=== PATIENT | male | born 1935 | race Caucasian/White ===

== ENCOUNTER → 2018-08-12 | Outpatient (CLI) | payer OTHER ==
[~2018-08-12] MED LIST: ACET325 PO; ASCO500 PO; ASPI325; ASPI81CH; ASPI81CH PO; BUDE6HFA INH; CARV25; CARV25 PO; CEFTR1PB IV; CEPH500 PO; CHOL10002 PO; CIPR500 PO; CLOP75; COLC.6 PO; COREG; Clindamycin HC150 MG PO; DIGO.25; EZET10-20; FURO20 PO; FURO40; FURO80; GLIP10; Humalog100 UNIT/1; Humalog100 UNIT/3 SC; INSULANI; INSULANPEN; INSULANPEN SC; LANOXIN; METALOZONE; METF500 PO; POTA10T; POTCHL20ER PO; PRED20 PO; RXHYDACE PO; SACC250C PO; SERT25 PO; SIMV10 PO; SPIR25 PO; Simvastatin20 MG PO; VYTORIN; WARF4; WARF6
== END | disposition home or self-care (01) ==
LOC: LAB SHORT 13:48 → PLD 13:48
DX: D48.5 Neoplasm of uncertain behavior of skin (principal)
CPT/HCPCS: 88305; 88313

== ENCOUNTER → 2018-12-25 | Outpatient (CLI) | payer OTHER ==
[2018-12-26 15:33] LABS: Stool Occult Bld Immuno 1 Negative (NEGATIVE); Stool Occult Bld Immuno 2 Negative (NEGATIVE)
== END | disposition home or self-care (01) ==
LOC: LAB SHORT 21:30 → LAB 21:30 → LAB FUT 12-25 17:00
PROVIDERS: Internal Medicine
DX: N18.4 Chronic kidney disease, stage 4 (severe) (principal); D63.1 Anemia in chronic kidney disease; D69.6 Thrombocytopenia, unspecified
CPT/HCPCS: 82274

== ENCOUNTER → 2020-03-21 | Outpatient (CLI) | payer OTHER ==
[2020-03-21 11:19] LABS: Appearance, Urine Clear (Clear); Bilirubin, Urine Neg (Neg); Blood, Urine 2+ (Neg); Color, Urine Yellow (P-Yellow); Glucose Qualitative, Urine Neg (Neg); Ketones, Urine Neg (Neg); Leukocyte Esterase, Urine 1+ (Neg); Nitrite, Urine Neg (Neg); Protein, Urine 2+ (Neg); Urobilinogen, Urine NORM (Normal)
[2020-03-21 11:30] LABS: Bacteria Few /hpf; Squamous Epithelial Cells Rare /hpf (Few)
== END | disposition home or self-care (01) ==
LOC: LAB 10:21 → LAB SHORT 10:21
PROVIDERS: Internal Medicine
DX: R35.0 Frequency of micturition (principal)
CPT/HCPCS: 81001; 87086

== ENCOUNTER → 2021-04-05 | Outpatient (CLI) | payer OTHER ==
[2021-04-05 11:31] LABS: Appearance, Urine Clear (Clear); Bilirubin, Urine Neg (Neg); Blood, Urine 4+ (Neg); Color, Urine Yellow (P-Yellow); Glucose Qualitative, Urine Neg (Neg); Ketones, Urine Neg (Neg); Leukocyte Esterase, Urine 1+ (Neg); Nitrite, Urine Neg (Neg); Protein, Urine 2+ (Neg); Specific Gravity, Urine 1.015 (1.003-1.022); Urobilinogen, Urine NORM (Normal)
[2021-04-05 11:51] LABS: Bacteria Few /hpf; Squamous Epithelial Cells Few /hpf (Few)
== END | disposition home or self-care (01) ==
LOC: LAB SHORT 10:07
PROVIDERS: Internal Medicine
DX: N18.32 Chronic kidney disease, stage 3b (principal)
CPT/HCPCS: 81001; 87077; 87086; 87186

== ENCOUNTER 2021-08-29 07:18 | Observation (INO) | payer OTHER ==
[~2021-08-29] VITALS: Ht 177.8 cm; Wt 94.1 kg
[~2021-08-29 07:18] MED LIST changes: +LOSA25 PO; +ROSU5 PO
[2021-08-30 04:41] LABS: Hematocrit 34.8 % (37.0-53.0); Hemoglobin 10.9 g/dL (13.5-17.5); Mean Corpuscular HGB 29.2 pg (26.0-34.0); Mean Corpuscular HGB Conc 31.3 g/dL (31.5-36.5); Mean Corpuscular Volume 93 fL (80-100); Mean Platelet Volume 11.8 fL (9.1-12.4); Platelet Count 62 K/mm3 (150-400); RDW Coefficient Variation 15.3 % (11.7-14.2); RDW Standard Deviation 52.1 fL (35.1-46.3); Red Blood Cell Count 3.73 M/mm3 (4.30-5.90); White Blood Cell Count 6.75 K/mm3 (4.00-11.30)
[2021-08-30 04:54] LABS: Bun/Creatinine Ratio 47.9 (12.0-20.0); Calcium, Blood 9.4 mg/dL (8.5-10.1); Creatinine, Blood 1.94 mg/dL (0.60-1.20)
== END 2021-08-30 11:52 | disposition home or self-care (01) ==
LOC: MHTC 07:18 → PCU 10:34
PROVIDERS: Internal Medicine Cardiovascular Disease; ADMIT Internal Medicine Cardiovascular Disease
DX: I48.20 Chronic atrial fibrillation, unspecified (principal); I49.3 Ventricular premature depolarization; I25.10 Atherosclerotic heart disease of native coronary artery without angina pectoris; Z95.2 Presence of prosthetic heart valve; I50.9 Heart failure, unspecified; N18.4 Chronic kidney disease, stage 4 (severe); E11.22 Type 2 diabetes mellitus with diabetic chronic kidney disease; E78.5 Hyperlipidemia, unspecified; D69.6 Thrombocytopenia, unspecified; Z88.8 Allergy status to other drugs, medicaments and biological substances; Z88.4 Allergy status to anesthetic agent; Z88.5 Allergy status to narcotic agent; Z79.899 Other long term (current) drug therapy
CPT/HCPCS: 33207; 36415; 71046; 80048; 82947; 85027; 99152; 99153; A9270; C1769; C1786; C1898; J0690; J1644; J1815; J2250; J2405; J3010; J7030; J7040; Q9967

== ENCOUNTER → 2021-11-07 | Outpatient (CLI) | payer OTHER ==
[2021-11-08 08:51] LABS: Source, Urine Voided
[2021-11-08 09:41] LABS: Bilirubin, Urine Neg (Neg); Blood, Urine 1+ (Neg); Glucose Qualitative, Urine Neg (Neg); Ketones, Urine Neg (Neg); Leukocyte Esterase, Urine 2+ (Neg); Nitrite, Urine Neg (Neg); Protein, Urine 2+ (Neg); Specific Gravity, Urine 1.015 (1.003-1.022); Urobilinogen, Urine NORM (Normal)
[2021-11-08 09:44] LABS: Appearance, Urine Clear (Clear); Color, Urine Yellow (P-Yellow)
[2021-11-08 10:17] LABS: Bacteria Few /hpf; Red Blood Cells, Urine 0-2 /hpf (0-2); Squamous Epithelial Cells Rare /hpf (Few)
[2021-11-08 10:18] LABS: Calcium Oxalate Crystals Rare /hpf
[2021-11-08 11:13] LABS: Creatinine, Urine Random 78.9 mg/dL (27.00-270.00); Protein, Urine Random 31.2 mg/dL (0.0-11.9); Protein/Creat Ratio, Ur Random 0.4
== END | disposition home or self-care (01) ==
LOC: LAB SHORT 19:30
PROVIDERS: Internal Medicine Nephrology
DX: N18.32 Chronic kidney disease, stage 3b (principal)
CPT/HCPCS: 81001; 82570; 84156

== ENCOUNTER 2022-07-05 02:16 | Inpatient (IN) | payer OTHER ==
[~2022-07-05] VITALS: Ht 180.3 cm; Wt 97.3 kg
[2022-07-05] MEDS ORDERED: CALC.25 PO (02:40)
[2022-07-05] MEDS ORDERED: ALLO100 PO (02:41)
[2022-07-05] MEDS ORDERED: LEVSOD25 PO (02:41)
[2022-07-05] MEDS ORDERED: Amiodarone HCl200 MG PO (02:41)
[2022-07-05] MEDS ORDERED: FOLI1 PO (02:42)
[2022-07-05 03:43] LABS: BASOPHILS ABSOLUTE AUTO 0.01 K/mm3 (0.00-0.23); BASOPHILS PERCENT AUTO 0 % (0-2); EOSINOPHILS ABSOLUTE AUTO 0.24 K/mm3 (0.00-0.68); EOSINOPHILS PERCENT AUTO 3 % (0-6); Hematocrit 31.3 % (37.0-53.0); Hemoglobin 10.2 g/dL (13.5-17.5); IMMATURE GRAN ABSOLUTE AUTO 0.04 K/mm3 (0.00-0.10); IMMATURE GRAN PERCENT AUTO 1 % (0-1); LYMPHOCYTES ABSOLUTE AUTO 1.34 K/mm3 (0.84-5.20); LYMPHOCYTES PERCENT AUTO 18 % (21-46); MONOCYTES ABSOLUTE AUTO 0.88 K/mm3 (0.16-1.47); MONOCYTES PERCENT AUTO 12 % (4-13); Mean Corpuscular HGB 30.6 pg (26.0-34.0); Mean Corpuscular HGB Conc 32.6 g/dL (31.5-36.5); Mean Corpuscular Volume 94 fL (80-100); Mean Platelet Volume 11.7 fL (9.1-12.4); NEUTROPHILS PERCENT AUTO 66 % (41-73); Platelet Count 57 K/mm3 (150-400); RDW Coefficient Variation 15.3 % (11.7-14.2); RDW Standard Deviation 53.4 fL (35.1-46.3); Red Blood Cell Count 3.33 M/mm3 (4.30-5.90); White Blood Cell Count 7.31 K/mm3 (4.00-11.30)
[2022-07-05 04:00] LABS: Influenza A, PCR NEGATIVE (NEGATIVE); Influenza B, PCR NEGATIVE (NEGATIVE); Resp Syncytial Virus, PCR NEGATIVE (NEGATIVE); SARS-Cov-2 (COVID-19) PCR, MMC NEGATIVE (NEGATIVE)
[2022-07-05 04:10] LABS: Albumin, Blood 3.4 g/dL (3.4-5.0); Albumin/Globulin Ratio 0.8 (0.8-1.8); Bilirubin, Total 0.5 mg/dL (0.1-1.0); Bun/Creatinine Ratio 30.6 (12.0-20.0); Calcium, Blood 10.4 mg/dL (8.5-10.1); Creatinine, Blood 3.37 mg/dL (0.60-1.20); Globulin, Blood 4.5 g/dL (2.2-4.0); Potassium, Blood 3.8 mmol/L (3.5-5.5); Total Protein, Blood 7.9 g/dL (6.4-8.2)
[2022-07-05 06:52] LABS: Source, Urine Straight Cath
[2022-07-05 07:09] LABS: Bilirubin, Urine Neg (Neg); Blood, Urine 4+ (Neg); Color, Urine Yellow (P-Yellow); Glucose Qualitative, Urine Neg (Neg); Ketones, Urine Neg (Neg); Leukocyte Esterase, Urine 2+ (Neg); Nitrite, Urine Neg (Neg); Protein, Urine 2+ (Neg); Specific Gravity, Urine 1.015 (1.003-1.022); Urobilinogen, Urine NORM (Normal)
[2022-07-05 07:48] LABS: Appearance, Urine Hazy (Clear)
[2022-07-05 07:49] LABS: Bacteria Rare /hpf; Squamous Epithelial Cells Rare /hpf (Few); Yeast/Fungi Urine Few /hpf
--- NOTE | 2022-07-05 10:54 | NUR ---
ADMIT PATIENT ADMITTED FROM ER AT 0930. PATIENT SETTLED INTO ROOM. PATIENT ORIENTED TO CALL LIGHT AND TV CONTROL. PATIENT A&O X4, FAMILY REPORTS OCCASSIONALLY FORGETFUL WHEN FIRST WAKING UP. AND DAUGHTER AT BEDSIDE DURING ADMIT. PATIENT LIVES WITH BOTH OF THEM. BED ALARM ON FOR SAFETY. PER FAMILY, PATIENT IS W/C BOUND AT BASELINE, USUALLY ABLE TO STAND PIVOT TRANSFER WITH LITTLE ASSISTANCE. WOUND IN PANNUS, PICTURES IN CHART. 2ND RN FOR SKIN CHECK, ALEXANDER FRANKLIN. PATIENT ON ROOM AIR, SATURATING WELL. PATIENT DOES HAVE WET, PRODUCTIVE COUGH. PATIENT IS [place]. LUNG SOUNDS CLEAR. TELE PLACED, VENT PACED AT 66, OCCASSIONALLY ALSO IN AFIB. PT/OT ORDERED. PATIENT HAD GLF LAST NIGHT AT HOME.
[2022-07-06 05:58] LABS: BASOPHILS ABSOLUTE AUTO 0.02 K/mm3 (0.00-0.23); BASOPHILS PERCENT AUTO 0 % (0-2); EOSINOPHILS ABSOLUTE AUTO 0.16 K/mm3 (0.00-0.68); EOSINOPHILS PERCENT AUTO 3 % (0-6); Hematocrit 27.2 % (37.0-53.0); IMMATURE GRAN ABSOLUTE AUTO 0.04 K/mm3 (0.00-0.10); IMMATURE GRAN PERCENT AUTO 1 % (0-1); LYMPHOCYTES ABSOLUTE AUTO 1.44 K/mm3 (0.84-5.20); LYMPHOCYTES PERCENT AUTO 22 % (21-46); MONOCYTES ABSOLUTE AUTO 0.71 K/mm3 (0.16-1.47); MONOCYTES PERCENT AUTO 11 % (4-13); Mean Corpuscular HGB Conc 33.1 g/dL (31.5-36.5); Mean Corpuscular Volume 94 fL (80-100); Mean Platelet Volume 10.6 fL (9.1-12.4); NEUTROPHILS ABSOLUTE AUTO 4.11 K/mm3 (1.96-9.15); NEUTROPHILS PERCENT AUTO 63 % (41-73); RDW Coefficient Variation 15.4 % (11.7-14.2); RDW Standard Deviation 53.3 fL (35.1-46.3); White Blood Cell Count 6.48 K/mm3 (4.00-11.30)
[2022-07-06 06:19] LABS: Platelet Count 49 K/mm3 (150-400)
[2022-07-06 07:01] LABS: Albumin, Blood 2.7 g/dL (3.4-5.0); Albumin/Globulin Ratio 0.6 (0.8-1.8); Bilirubin, Total 0.5 mg/dL (0.1-1.0); Bun/Creatinine Ratio 32.6 (12.0-20.0); Calcium, Blood 9.2 mg/dL (8.5-10.1); Creatinine, Blood 3.22 mg/dL (0.60-1.20); Globulin, Blood 4.4 g/dL (2.2-4.0); Percent Saturation 9.5 % (20.0-50.0); Phosphorus, Blood 4.4 mg/dL (2.5-4.9); Potassium, Blood 3.2 mmol/L (3.5-5.5); Total Protein, Blood 7.1 g/dL (6.4-8.2)
--- NOTE | 2022-07-06 07:33 | NUR ---
POWER REGULATOR SUMMARY: A&Ox4. PLEASANT AND COOPERATIVE WITH CARE. CALLS APPROPRIATELY AND IS ABLE TO COMMUNICATE NEEDS EFFECTIVELY. WHEELCHAIR-BOUND AT BASELINE. PILLS WHOLE IN WATER. BLEs EDEMATOUS. BUEs DRY WITH MULTIPLE BRUISING SCATTERED T/O R/T FALL HE RECENTLY HAD AT HOME. NO ACUTE EVENTS T/O THE NIGHT. LABS DRAWN THIS AM; CRITICAL PLATELET VALUE OF 49 RECEIVED FROM ANITRA IN HEMATOLOGY. WINDOWS DEPLOYMENT TECHNICIAN NOTIFIED. OF NOTE, PT DOES HAVE THROMBOCYTOPENIA AND HAS LOW PLATELETS AT BASELINE, NOTED IN PROVIDER S NOTES. REPORT TO ONCOMING RN.
--- NOTE | 2022-07-06 16:01 | NUR ---
SPOKE TO DR CURRY RE PT NOT WANTING HEPARIN R/T LOW PLATELETTS. HE OKAYED WITH USING SCD'S FOR DVT PROPHYLACTICS. THEY ARE ALREADY ON ORDER. WILL DISCUSS WITH MARCELA CERVANTES.
--- NOTE | 2022-07-06 18:26 | NUR ---
PT HAD DISCUSSION WITH DR RICHARDS ABOUT DIALYSIS. I DID DISCUSS THIS SOME FURTHER. PT AND FAMILY TO TALK MORE. PT STATES FEELS A LITTLE BETTER TODAY. NO C/O PAIN TODAY. FAMILY AT BEDSIDE MOST OF DAY. PT AND FAMILY DID DISCUSS HOLDING HEPARIN R/T LOW PLATELETT COUNT. DR SYLVESTERAYED PLACING THE SCD'S. NO OTHER NEW CONCERNS NOTED. BED IN LOW POSITION, CALL LITE IN REACH, CALLS APPROP
--- NOTE | 2022-07-07 05:32 | NUR ---
PT SLEPT WELL. Q 2-3HR REPOSITIONING. CONTINUES TO HAVE WET PRODUCTIVE COUGH
[2022-07-07 05:44] LABS: BASOPHILS ABSOLUTE AUTO 0.01 K/mm3 (0.00-0.23); BASOPHILS PERCENT AUTO 0 % (0-2); EOSINOPHILS ABSOLUTE AUTO 0.23 K/mm3 (0.00-0.68); EOSINOPHILS PERCENT AUTO 3 % (0-6); Hematocrit 26.4 % (37.0-53.0); Hemoglobin 8.7 g/dL (13.5-17.5); IMMATURE GRAN ABSOLUTE AUTO 0.04 K/mm3 (0.00-0.10); IMMATURE GRAN PERCENT AUTO 1 % (0-1); LYMPHOCYTES ABSOLUTE AUTO 1.44 K/mm3 (0.84-5.20); LYMPHOCYTES PERCENT AUTO 20 % (21-46); MONOCYTES ABSOLUTE AUTO 0.79 K/mm3 (0.16-1.47); MONOCYTES PERCENT AUTO 11 % (4-13); Mean Corpuscular HGB 30.6 pg (26.0-34.0); Mean Corpuscular Volume 93 fL (80-100); Mean Platelet Volume 12.8 fL (9.1-12.4); NEUTROPHILS ABSOLUTE AUTO 4.62 K/mm3 (1.96-9.15); NEUTROPHILS PERCENT AUTO 65 % (41-73); RDW Coefficient Variation 14.9 % (11.7-14.2); RDW Standard Deviation 51.3 fL (35.1-46.3); Red Blood Cell Count 2.84 M/mm3 (4.30-5.90); White Blood Cell Count 7.13 K/mm3 (4.00-11.30)
[2022-07-07 05:49] LABS: Platelet Count 49 K/mm3 (150-400)
--- NOTE | 2022-07-07 05:50 | NUR ---
CALL FROM [place] IN LAB, CRITICAL VALUE OF PLATLETS AT 49
[2022-07-07 06:08] LABS: Bun/Creatinine Ratio 34.9 (12.0-20.0); Calcium, Blood 8.7 mg/dL (8.5-10.1); Creatinine, Blood 3.01 mg/dL (0.60-1.20); Potassium, Blood 3.2 mmol/L (3.5-5.5)
--- NOTE | 2022-07-07 18:23 | NUR ---
FAMILY IN ROOM WITH PT MOST OF DAY. THEY ARE DISCUSSING IF GO DIALYSIS ROUTE. I CALLED [facility] IN TO TALK TO FAMILY TODAY. DR RICHARDS TO COME SEE TOMORROW IN PERSON. PT DIDNT EAT MUCH LUNCH, BUT STATES THINKS MIGHT DO BETTER FOR DINNER. ENCOURAGING HIM BRINKING MORE. NO NEW CONCERNS NOTED TODAY. DID GET HEPARIN D/C TODAY AND PT SI USING SCD'S. BED IN LOW POSITION, CALL LITE IN REACH, CALLS APPROP
--- NOTE | 2022-07-07 20:00 | NUR ---
Met with family to review diagnostic and what dialysis care would look like versus hospice. Pt was able to answer a few questions but drifted off to sleep. Pt struggling to hosp head in postion so got neck pillow. Spoke with and daughter about care. reviewed of nephrolgy note. They had a family memeber on dialysis so understand the commitment and difficult logistics. They ore more inclined to not have treatment. is bargianing some she hopes doctor can recover his kidneys and he can go to rehab for some thearpy and return home. She states he is a and want to look at placement if on hospice. Theyare struggling a bit with acceptance. The did ask many questions. Will discuss more with them and review polst. will give them loving choices book. pt kps score is 30%.
[2022-07-08 06:24] LABS: Albumin, Blood 2.5 g/dL (3.4-5.0); Anion Gap 8 mmol/L (6-16); Blood Urea Nitrogen 104 mg/dL (8-24); Bun/Creatinine Ratio 35.9 (12.0-20.0); CO2, Blood 25 mmol/L (21-32); Chloride, Blood 106 mmol/L (98-108); Glomerular Filtration Rate 21 (60-); Glucose, Blood 151 mg/dL (70-99); Phosphorus, Blood 4.4 mg/dL (2.5-4.9); Potassium, Blood 3.1 mmol/L (3.5-5.5); Sodium, Blood 139 mmol/L (136-145)
--- NOTE | 2022-07-08 07:23 | NUR ---
TRANSFER DRIVER SUMMARY: A&Ox4. PLEASANT AND COOPERATIVE WITH CARE. CALLS APPROPRIATELY AND IS ABLE TO COMMUNICATE NEEDS EFFECTIVELY. INCONTINENT OF URINE AND POOR MOBILITY; Q2H TURNS FOR SKIN INTEGRITY. SMALL AREA ON BUTTOCK COVERED WITH MEPILEX. CONTINUES TO HAVE SIGNIFICANT BRUISING AND DRY SKIN ALL EXTREMITIES. BLEs 2+ EDEMA. LABS THIS AM. WILL REPORT TO ONCOMING RN.
--- NOTE | 2022-07-08 16:50 | NUR ---
SHIFT SUMMARY PT A&OX4, COOPERATIVE WITH CARE. HEARING DEFICIT. LEFT SIDED LIST. OVERALL WEAKNESS. SKIN VERY FRAGILE AND ECCHYMOTIC. IV BLOWN. DC ORDERS RECEIVED FROM DR. PUENTES. TELE REMOVED. PT HAS POLYURIA AND INCONTINENCE DUE TO DIURESING. BLANCHABLE REDNESS TO BILATERAL HEELS. NONBLANCHABLE REDNESS AND AN OPEN SORE ON COCCYX. LUNG SOUNDS CONGESTED, OCCASIONAL NON-PRODUCTIVE COUGH. NO ACUTE EVENTS DURING THIS SHIFT. REPORTS PAIN TO LOWER BACK AND BACKSIDE, BUT REFUSES ANY TYPE OF PAIN MEDICATION. PT REPOSITIONED T/O SHIFT. PT CURRENTLY RESTING COMFORTABLY WITH CALL LIGHT IN REACH. PALLIATIVE CARE CONSULTED. PT AND FAMILY DECIDING BETWEEN DIALYSIS OR HOSPICE.
--- NOTE | 2022-07-09 05:38 | NUR ---
PT REFUSING REPOSITIONS AT TIMES, PREFERS ON BACK AND TO LEFT SIDE, REMINDED PT OF RISK FOR SKIN BREAKDOWN. Q2HR CHECKS.
[2022-07-09 05:46] LABS: BASOPHILS ABSOLUTE AUTO 0.01 K/mm3 (0.00-0.23); BASOPHILS PERCENT AUTO 0 % (0-2); EOSINOPHILS ABSOLUTE AUTO 0.39 K/mm3 (0.00-0.68); EOSINOPHILS PERCENT AUTO 6 % (0-6); Hemoglobin 8.6 g/dL (13.5-17.5); IMMATURE GRAN ABSOLUTE AUTO 0.04 K/mm3 (0.00-0.10); IMMATURE GRAN PERCENT AUTO 1 % (0-1); LYMPHOCYTES PERCENT AUTO 22 % (21-46); MONOCYTES ABSOLUTE AUTO 0.67 K/mm3 (0.16-1.47); MONOCYTES PERCENT AUTO 10 % (4-13); Mean Corpuscular HGB 30.2 pg (26.0-34.0); Mean Corpuscular HGB Conc 33.1 g/dL (31.5-36.5); Mean Corpuscular Volume 91 fL (80-100); Mean Platelet Volume 12.3 fL (9.1-12.4); NEUTROPHILS ABSOLUTE AUTO 3.99 K/mm3 (1.96-9.15); NEUTROPHILS PERCENT AUTO 61 % (41-73); Platelet Count 62 K/mm3 (150-400); RDW Coefficient Variation 14.9 % (11.7-14.2); RDW Standard Deviation 50.4 fL (35.1-46.3); Red Blood Cell Count 2.85 M/mm3 (4.30-5.90)
[2022-07-09 07:12] LABS: Albumin, Blood 2.2 g/dL (3.4-5.0); Anion Gap 4 mmol/L (6-16); Blood Urea Nitrogen 104 mg/dL (8-24); Bun/Creatinine Ratio 36.6 (12.0-20.0); CO2, Blood 27 mmol/L (21-32); Calcium, Blood 8.6 mg/dL (8.5-10.1); Chloride, Blood 108 mmol/L (98-108); Creatinine, Blood 2.84 mg/dL (0.60-1.20); Glomerular Filtration Rate 21 (60-); Glucose, Blood 145 mg/dL (70-99); Phosphorus, Blood 3.9 mg/dL (2.5-4.9); Potassium, Blood 3.4 mmol/L (3.5-5.5); Sodium, Blood 139 mmol/L (136-145)
--- NOTE | 2022-07-09 18:43 | NUR ---
SHIFT SUMMARY A&OX4, HARD OF HEARING. PT SLEPT THROUGH MOST OF THE DAY. FAMILY WAS PRESENT T/O SHIFT. NO ACUTE EVENTS DURING THIS SHIFT. LUNGS SOUND CONGESTED. NONPRODUCTIVE COUGH T/O SHIFT. LBM DURING SHIFT. PALLIATIVE CARE CONSULTED. FAMILY IS CURRENTLY WITH PATIENT, HE IS SLEEPING. CALL LIGHT WITHIN REACH.
--- NOTE | 2022-07-10 04:21 | NUR ---
SHIFT SUMMARY ADMITTED FOR RENAL FAILURE. FULL CODE. PO ANTIB RX ARE SCHEDULED. WE ARE DIURESING HIM. PLAN IS FOR PLACEMENT. ACHS CBG'S. 2 G LOW NA+ DIET. INCONTINENT. [place]. ON RA. RENAL CONSULT IS DR. RICHARDS. ON BEDREST. PACEMAKER IN PLACE.
[2022-07-10 05:59] LABS: Albumin, Blood 2.4 g/dL (3.4-5.0); Anion Gap 5 mmol/L (6-16); Blood Urea Nitrogen 100 mg/dL (8-24); Bun/Creatinine Ratio 31.9 (12.0-20.0); CO2, Blood 25 mmol/L (21-32); Calcium, Blood 9.2 mg/dL (8.5-10.1); Chloride, Blood 107 mmol/L (98-108); Creatinine, Blood 3.13 mg/dL (0.60-1.20); Glomerular Filtration Rate 19 (60-); Glucose, Blood 170 mg/dL (70-99); Phosphorus, Blood 3.9 mg/dL (2.5-4.9); Potassium, Blood 4.2 mmol/L (3.5-5.5); Sodium, Blood 137 mmol/L (136-145)
--- NOTE | 2022-07-10 17:51 | NUR ---
SHIFT SUMMARY PT AWAKE DURING SHIFT REPORT, RESTING QUIETLY WATCHING TV. PT IS POINT LAY [place], BUT A&O. PLEASANT AND CO-OP WITH CARE. ADMITTED FOR RF/UTI. DR RICHARDS IN TO SEE PT EARLY THIS AM TO DISCUSS PLAN OF CARE. DR PUENTES LATER IN TO SEE PT WELL. PT CONTINUES TO WAIT PLACEMENT; NANOELECTRONICS ENGINEER WORKING ON CASE. P/T IN TO SEE PT; ATTEMPTING TO GET PT TO EOB TO DANGLE. PT IS WEAK AND DECONDITIONED. PT REPOSITIONED IN BED TO GET OFF BUTTOCKS/TAILBONE. PT LATER TX'D TO CHAIR, PER REQUEST, VIA LIFT AFTER BREAKFAST. PT REMAINED IN CHAIR MOST OF THE DAY. FAMILY IN RM TO VISIT EARLIER, REMAINING AT THIS TIME. CHAIR ALARM ON FOR SAFETY. CALL LT IN REACH. DENIED FURTHER NEEDS AT THIS TIME.
--- NOTE | 2022-07-11 05:08 | NUR ---
PATIENT ALERT AND ORIENTED, ROOM AIR, NO IV, NO TELE, INCONTINENT, RENAL DIET, WAITING ON SNF PLACEMENT
[2022-07-11 05:59] LABS: Albumin, Blood 2.5 g/dL (3.4-5.0); Anion Gap 6 mmol/L (6-16); Blood Urea Nitrogen 101 mg/dL (8-24); Bun/Creatinine Ratio 31.6 (12.0-20.0); CO2, Blood 26 mmol/L (21-32); Calcium, Blood 8.9 mg/dL (8.5-10.1); Chloride, Blood 105 mmol/L (98-108); Glomerular Filtration Rate 18 (60-); Glucose, Blood 145 mg/dL (70-99); Phosphorus, Blood 4.1 mg/dL (2.5-4.9); Sodium, Blood 137 mmol/L (136-145)
--- NOTE | 2022-07-11 08:23 | NUR ---
Pt laying in bed with feet over edge, sitting him up to eat breakfast, a/ox3, [place], follows commands well, family in room, lungs are clear but dim t/o, resp even and unlabored, has a harsh nonproductive cough, hrr, trace edema noted to lle, cap refill <3sec, vs stable, afebrile, btx4, abd flat soft nontender, incont briefs in place, skin is very frail with ecchymotic areas to arms, maew, weak, aidan, call light in reach.
--- NOTE | 2022-07-11 12:35 | NUR ---
CASE CONF WITH CM ABOUT DC PLAN. PT AND FAMILY HAVE DECIDED TO DECLINE DIALYSIS, PLAN TO HAVE DISCUSSION WITH FAMILY WHEN ALL THE DAUGHTERS ARRIVE AROUND 1330 TODAY ABOUT GOALS OF CARE AND HOSPICE.
--- NOTE | 2022-07-11 13:46 | NUR ---
PT DAUGHTER, JESSICA NICOLASNT ARRIVED YET, STILL WAITING TO HAVE MEETING.
--- NOTE | 2022-07-11 15:00 | NUR ---
CASE CONF WITH CM ABOUT POSS DC PLAN HOME WITH HH OR HOSPICE. PT SNF REQUEST WAS DENIED R/T PT CHANGED THEIR RECOMENDATION FOR SNF TO HOME WITH HH. THIS RN AND CM MET WITH PT SPOUSE, ARAM AND 2 DTRS. PROVIDED EDUCATION AND INFORMATION ON HH AND HOSPICE. EXPLAINED WHAT EACH PROGRAM OFFERS AND THEIR FOCUS. EDUCATED ON WHAT THE ROLES OF HH/HOSPICE PROGRAMS, TO TEACH AND SUPPORT FAMILY TO PROVIDE TOTAL CARE AT HOME. FAMILY WITH CONCERNS ABOUT LIFTING AND CARING FOR PT AT HOME, ADVISED EACH AGENCY WILL MAKE 2-3 VISITS A WEEK, BUT IT IS UP TO THE FAMILY TO PROVIDE THE DAILY CARE. QUESTIONS ABOUT PT GOING TO SNF FOR PT IN HOPE PT WILL GET STRONGER TO COME HOME AND GET UP/AMB ON HIS OWN. AGAIN ADVISED PT DOES NOT MEET CRITERIA FOR SNF REHAB, THEY VU. FAM IS LEANING TOWARDS HH AT HOME FOR PT SERICES TO FOCUS ON PT GETTING STRONGER AND "GET BETTER." HOWEVER, STILL HAVE QUESTIONS ABOUT HOSPICE PT IS A [facility] AND IF QUALIFIES FOR HOSPICE CAN BE CARED FOR AT A SNF UNTIL END OF LIFE. FAMILY WOULD LIKE TIME TO DICSUSS AND WILL FOLLOW UP LATER TODAY TO HELP ARRANGE APPROP DC PLAN. ADDITIONAL QUESTIONS ANSWERED ABOUT HOSPICE, THEY FOCUS ON QUALITY OF CARE AND COMFORT. WILL NOT HAVE PT FOR INCREASED STRENGTH OR REHAB, BUT FOR ROM FOR COMFORT. ALSO EDUCATED THAT ONCE A DECISION IS MADE TO GO ON HOSPICE, PT/FAM CAN DECIDE TO DC HOSPICE LATER IF PT IMPROVES OR THEY DECIDE TO GO A DIFFERENT DIRECTION. NO ADDITIONAL QUESTIONS AND WILL FOLLOW UP LATER FOR THEIR DECISION.
--- NOTE | 2022-07-11 17:27 | NUR ---
F/UP MEETING WITH FAMILY. ARAM REPORTS THEY WANT TO PROCEED WITH DC HOME WITH HH SERVICES. THEY ARE REQUESTING A BED AND HAVE SIGNED CHOICE LETTER WITH CM. UPDATED CM ON FAMILY'S DECISION. PALLIATIVE CARE WILL CONTINUE TO FOLLOW.
--- NOTE | 2022-07-11 18:39 | NUR ---
pt has had an uneventful day, no acute changes this shift. family at bedside all day, no needs or complaints. call light in reach.
--- NOTE | 2022-07-12 06:46 | NUR ---
PATIENT ALERT AND ORIENTED, ROOM AIR, NO IV, NO TELE, INCONTINENT, RENAL DIET, AC ACCUCHECKS, AWAITING PLACEMENT TO SNF
--- NOTE | 2022-07-12 17:51 | NUR ---
Shift Summary A/Ox3, pleasant/cooperative. Transfer status changed today from lift to 2p max/gaitbelt/Fww. When attempted to transfer patient from bsc to bed, patient buckled and did not inform staff that knees were going to buckle. RN noticed and immediately pulled bsc back underneath to prevent fall. Second attempt was better, but patient did not tolerate standing up for long enough to wipe and apply cream before requesting to be seated again. was at bedside during this time. Some pain to coccyx, dressing changed due to soiled, reposition as patient allows. Requires persistent encouragement to allow staff to reposition despite education on pressure ulcer prevention. Family also educated on the need for Q2H turns and offloading. Good appetite. Sleepy today.
[2022-07-13 05:25] LABS: BASOPHILS ABSOLUTE AUTO 0.02 K/mm3 (0.00-0.23); BASOPHILS PERCENT AUTO 0 % (0-2); EOSINOPHILS ABSOLUTE AUTO 0.44 K/mm3 (0.00-0.68); EOSINOPHILS PERCENT AUTO 6 % (0-6); Hematocrit 25.7 % (37.0-53.0); Hemoglobin 8.5 g/dL (13.5-17.5); IMMATURE GRAN PERCENT AUTO 2 % (0-1); LYMPHOCYTES ABSOLUTE AUTO 1.44 K/mm3 (0.84-5.20); LYMPHOCYTES PERCENT AUTO 21 % (21-46); MONOCYTES ABSOLUTE AUTO 0.74 K/mm3 (0.16-1.47); MONOCYTES PERCENT AUTO 11 % (4-13); Mean Corpuscular HGB 30.4 pg (26.0-34.0); Mean Corpuscular HGB Conc 33.1 g/dL (31.5-36.5); Mean Corpuscular Volume 92 fL (80-100); Mean Platelet Volume 12.2 fL (9.1-12.4); NEUTROPHILS ABSOLUTE AUTO 4.13 K/mm3 (1.96-9.15); NEUTROPHILS PERCENT AUTO 60 % (41-73); Platelet Count 110 K/mm3 (150-400); RDW Coefficient Variation 14.8 % (11.7-14.2); RDW Standard Deviation 50.1 fL (35.1-46.3); White Blood Cell Count 6.87 K/mm3 (4.00-11.30)
[2022-07-13 05:52] LABS: Alanine Aminotransfer (ALT/SGP 75 U/L (12-78); Albumin, Blood 2.6 g/dL (3.4-5.0); Albumin/Globulin Ratio 0.6 (0.8-1.8); Alk Phos 94 U/L (50-136); Anion Gap 5 mmol/L (6-16); Aspartate Aminotrans (AST/SGOT 53 U/L (12-37); Bilirubin, Total 0.4 mg/dL (0.1-1.0); Blood Urea Nitrogen 101 mg/dL (8-24); Bun/Creatinine Ratio 29.2 (12.0-20.0); CO2, Blood 26 mmol/L (21-32); Calcium, Blood 9.1 mg/dL (8.5-10.1); Chloride, Blood 103 mmol/L (98-108); Creatinine, Blood 3.46 mg/dL (0.60-1.20); Globulin, Blood 4.5 g/dL (2.2-4.0); Glomerular Filtration Rate 17 (60-); Glucose, Blood 125 mg/dL (70-99); Phosphorus, Blood 4.2 mg/dL (2.5-4.9); Potassium, Blood 3.8 mmol/L (3.5-5.5); Sodium, Blood 134 mmol/L (136-145); Total Protein, Blood 7.1 g/dL (6.4-8.2)
--- NOTE | 2022-07-13 06:34 | NUR ---
PATIENT SLEPT WELL. NO EVENTS OVERNIGHT. PATIENT POSSIBLE DISCHARGE HOME WITH HOME HEALTH
--- NOTE | 2022-07-13 15:56 | NUR ---
Shift Summary A/O, family at bedside. Considering plans to d/c home with HH tomorrow AM, edcuation given to and daughter with teach back RE assisting with urinal use and repositioning for ulcer prevention. Calling appropriately for urinal use. Remains increasingly weak. No pain issues. Good appetite. Voiding well.
[2022-07-14 06:04] LABS: Albumin, Blood 2.6 g/dL (3.4-5.0); Anion Gap 5 mmol/L (6-16); Blood Urea Nitrogen 98 mg/dL (8-24); Bun/Creatinine Ratio 27.8 (12.0-20.0); CO2, Blood 26 mmol/L (21-32); Calcium, Blood 9.2 mg/dL (8.5-10.1); Chloride, Blood 103 mmol/L (98-108); Creatinine, Blood 3.53 mg/dL (0.60-1.20); Glomerular Filtration Rate 16 (60-); Glucose, Blood 171 mg/dL (70-99); Phosphorus, Blood 4.5 mg/dL (2.5-4.9); Potassium, Blood 3.8 mmol/L (3.5-5.5); Sodium, Blood 134 mmol/L (136-145)
--- NOTE | 2022-07-14 06:11 | NUR ---
PATIENT ALERT AND ORIENTED, ROOM AIR, NO TELE, NO IV, PATIENT SAT UP ON SIDE OF BED IN THE MIDDLE OF THE NIGHT DUE TO SHOULDER AND NECK PAIN FROM LAYING IN BED, MEDICATED WITH TYLENOL, PLAN TO D/C HOME WITH HH
[2022-07-14] MEDS ORDERED: Vitamin D1000 UNI1 PO (15:48)
--- NOTE | 2022-07-14 17:37 | NUR ---
DISCHARGE NOTE: PT AND FAMILY EDUCATED ON DISCHARGE MEDICATIONS, AND FOLLOWING UP WITH PCP IN 1 WEEK. PT DRESSED BY NUTRITION CONSULTANT AND DRESSING CHANGE ON COCCYX. PT PERSONAL BELONGINGS PACKED BY FAMILY. PT HAD NO IV ACCESS. PT TRANSPORTED HOME BY [facility].
== END 2022-07-14 18:00 | disposition home health service (06) | DRG 682 ==
LOC: ER 02:16 → MEDS 02:17
PROVIDERS: Family Medicine; Internal Medicine; Internal Medicine Nephrology; Student in an Organized Health Care Education/Training Program; ADMIT Internal Medicine
DX: N17.9 Acute kidney failure, unspecified (principal); G93.41 Metabolic encephalopathy; I13.0 Hypertensive heart and chronic kidney disease with heart failure and stage 1 through stage 4 chronic kidney disease, or unspecified chronic kidney disease; N39.0 Urinary tract infection, site not specified; J90 Pleural effusion, not elsewhere classified; N18.4 Chronic kidney disease, stage 4 (severe); E87.6 Hypokalemia; I50.9 Heart failure, unspecified; E11.22 Type 2 diabetes mellitus with diabetic chronic kidney disease; D69.6 Thrombocytopenia, unspecified; Z51.5 Encounter for palliative care; I25.5 Ischemic cardiomyopathy; E66.09 Other obesity due to excess calories; I48.91 Unspecified atrial fibrillation; D63.1 Anemia in chronic kidney disease; F41.9 Anxiety disorder, unspecified; I25.10 Atherosclerotic heart disease of native coronary artery without angina pectoris; F32.A Depression, unspecified; G47.33 Obstructive sleep apnea (adult) (pediatric); M10.9 Gout, unspecified; E78.5 Hyperlipidemia, unspecified; B96.89 Other specified bacterial agents as the cause of diseases classified elsewhere; B95.4 Other streptococcus as the cause of diseases classified elsewhere; W18.30XA Fall on same level, unspecified, initial encounter; Z20.822 Contact with and (suspected) exposure to COVID-19; Z85.46 Personal history of malignant neoplasm of prostate; Z95.2 Presence of prosthetic heart valve; Z98.890 Other specified postprocedural states; Z95.5 Presence of coronary angioplasty implant and graft; Z88.8 Allergy status to other drugs, medicaments and biological substances; Z88.5 Allergy status to narcotic agent; Z79.899 Other long term (current) drug therapy; Z79.01 Long term (current) use of anticoagulants; Z79.4 Long term (current) use of insulin; Z87.442 Personal history of urinary calculi; Z87.891 Personal history of nicotine dependence; Z68.29 Body mass index [BMI] 29.0-29.9, adult
CPT/HCPCS: 0241U; 36415; 51798; 71045; 76770; 80048; 80053; 80069; 81001; 82306; 82570; 82728; 82947; 83540; 83550; 83735; 83880; 83970; 84100; 84145; 84156; 84300; 84540; 85025; 87086; 93005; 93010; 96374; 97110; 97112; 97112-CQ; 97161; 97166; 97530; 97535; 99285-25; A9270; G0378; J0696; J1815; J7030; Q5106

== ENCOUNTER → 2022-08-08 | Outpatient (CLI) | payer OTHER ==
[~2022-08-08] MED LIST changes: +ALLO100 PO; +Amiodarone HCl200 MG PO; +CALC.25 PO; +FOLI1 PO; +LEVSOD25 PO; +Vitamin D1000 UNI1 PO
[2022-08-08 18:01] LABS: BASOPHILS ABSOLUTE AUTO 0.01 K/mm3 (0.00-0.23); BASOPHILS PERCENT AUTO 0 % (0-2); EOSINOPHILS ABSOLUTE AUTO 0.25 K/mm3 (0.00-0.68); EOSINOPHILS PERCENT AUTO 5 % (0-6); Hematocrit 29.4 % (37.0-53.0); Hemoglobin 9.3 g/dL (13.5-17.5); IMMATURE GRAN ABSOLUTE AUTO 0.03 K/mm3 (0.00-0.10); IMMATURE GRAN PERCENT AUTO 1 % (0-1); LYMPHOCYTES ABSOLUTE AUTO 1.54 K/mm3 (0.84-5.20); LYMPHOCYTES PERCENT AUTO 30 % (21-46); MONOCYTES ABSOLUTE AUTO 0.49 K/mm3 (0.16-1.47); MONOCYTES PERCENT AUTO 9 % (4-13); Mean Corpuscular HGB 30.3 pg (26.0-34.0); Mean Corpuscular HGB Conc 31.6 g/dL (31.5-36.5); Mean Corpuscular Volume 96 fL (80-100); NEUTROPHILS ABSOLUTE AUTO 2.89 K/mm3 (1.96-9.15); NEUTROPHILS PERCENT AUTO 55 % (41-73); RDW Coefficient Variation 16.5 % (11.7-14.2); RDW Standard Deviation 57.6 fL (35.1-46.3); Red Blood Cell Count 3.07 M/mm3 (4.30-5.90); White Blood Cell Count 5.21 K/mm3 (4.00-11.30)
[2022-08-08 18:18] LABS: Platelet Count 44 K/mm3 (150-400)
== END | disposition home or self-care (01) ==
LOC: LAB SHORT 16:19
PROVIDERS: Internal Medicine
DX: E11.22 Type 2 diabetes mellitus with diabetic chronic kidney disease (principal); N18.9 Chronic kidney disease, unspecified; D69.6 Thrombocytopenia, unspecified
CPT/HCPCS: 83036; 85025

== ENCOUNTER → 2022-08-12 | Outpatient (CLI) | payer OTHER ==
[2022-08-12 11:52] LABS: Source, Urine Voided
[2022-08-12 13:37] LABS: Appearance, Urine Hazy (Clear); Bilirubin, Urine Neg (Neg); Blood, Urine 3+ (Neg); Color, Urine Yellow (P-Yellow); Glucose Qualitative, Urine Neg (Neg); Ketones, Urine Neg (Neg); Leukocyte Esterase, Urine Neg (Neg); Nitrite, Urine Neg (Neg); Protein, Urine 3+ (Neg); Urobilinogen, Urine NORM (Normal)
[2022-08-12 14:13] LABS: Hyaline Casts 0-2 /lpf (0-2); Mucus Light (0-Heavy)
[2022-08-12 14:14] LABS: Squamous Epithelial Cells Rare /hpf (Few); White Blood Cells, Urine 0-2 /hpf (0-5)
[2022-08-12 14:15] LABS: Amorphous Light (0-Heavy); Bacteria Many /hpf; Calcium Oxalate Crystals Few /hpf; Transitional Epithelial Cells Rare /hpf (0-Rare)
== END | disposition home or self-care (01) ==
LOC: LAB SHORT 11:18
PROVIDERS: Internal Medicine
DX: R30.0 Dysuria (principal)
CPT/HCPCS: 81001; 87086

== ENCOUNTER → 2022-08-15 | Outpatient (CLI) | payer OTHER ==
[2022-08-15 15:29] LABS: Appearance, Urine Clear (Clear); Bilirubin, Urine Neg (Neg); Blood, Urine 3+ (Neg); Color, Urine Yellow (P-Yellow); Glucose Qualitative, Urine Neg (Neg); Ketones, Urine Neg (Neg); Leukocyte Esterase, Urine Neg (Neg); Nitrite, Urine Neg (Neg); Protein, Urine 2+ (Neg); Source, Urine Voided; Urobilinogen, Urine NORM (Normal)
[2022-08-15 15:44] LABS: Calcium Oxalate Crystals Few /hpf; White Blood Cells, Urine 0-2 /hpf (0-5)
[2022-08-15 15:45] LABS: Bacteria Few /hpf; Squamous Epithelial Cells Rare /hpf (Few)
== END | disposition home or self-care (01) ==
LOC: LAB SHORT 11:50
PROVIDERS: Internal Medicine
DX: R30.0 Dysuria (principal)
CPT/HCPCS: 81001